=== PATIENT | male | born 1995 | race Two or more races ===

== ENCOUNTER 2017-08-07 19:35 | Emergency (ER) | payer MEDICAID, OTHER ==
[2017-08-07] MEDS ORDERED: NS 1,000 ML IV ONE (19:54)
--- NOTE | 2017-08-07 19:54 | EDPHY ---
H & P Time Seen by Provider: 08/07/17 19:52 HPI/ROS: Chief complaint. Syncope HPI. 22-year-old male here by EMS had hunger pain earlier today and had not yet eaten. Pain was in the upper abdomen. He then got lightheaded and passed out. He awoke on the floor. He does not have any injuries. He has a history of vasovagal syncope and has had this happen before. He feels a little bit foggy. No chest discomfort or trouble breathing. Now no longer abdominal pain. No vomiting or diarrhea. No recent fever or illness ROS Constitutional. no fever/chills, no weakness Eyes. no problems with vision ENT. no sore throat, no nasal drainage Cardiovascular. no chest pain Respiratory. no shortness of breath, no cough Abdominal. no abdominal pain, no nausea/vomiting, no diarrhea . no problems urinating MS. no calf pain/swelling, no neck/back pain, no joint pain Skin. no rash Lymph. no swollen glands Neuro. Syncope Past Medical/Surgical History: Vasovagal syncope Social History: Single, nonsmoker, no alcohol Smoking Status: Never smoked Physical Exam: General Appearance: Alert pleasant well-developed male mild distress vital signs are stable Eyes: Pupils equal and round no pallor or injection. ENT, Mouth: Mucous membranes are moist. Respiratory: There are no retractions, lungs are clear to auscultation. Cardiovascular: Regular rate and rhythm. Gastrointestinal: Abdomen is soft and nontender, no masses, bowel sounds normal. Neurological: Awake and alert, sensory and motor exams grossly normal. Skin: Warm and dry, no rashes. Musculoskeletal: Neck is supple nontender. Extremities symmetrical, full range of motion. Psychiatric: Patient is oriented X 3, there is no agitation. Constitutional: Initial Vital Signs Heart Rate 75 08/07/17 19:38 Respiratory Rate 18 08/07/17 19:38 Blood Pressure 119/76 08/07/17 19:38 O2 Sat (%) 98 08/07/17 19:38 O2 Delivery Mode Room Air O2 (L/minute) 37.0 Allergies/Adverse Reactions: No Known Allergies Allergy (Unverified 05/26/10 21:40) Home Medications: Medication Instructions Recorded NK [No Known Home Meds] 08/07/17 Medical Decision Making - Diagnostics EKG Interpretation: EKG interpreted by me shows normal sinus rhythm with normal interval and axis. QRS is normal there is no significant ST elevation or depression. No arrhythmia. The rate is 67 Procedures: IV normal saline, monitor ED Course/Re-evaluation: Re-evaluation 10:15 p.m. patient is stable feels well with no symptoms. The patient and I discussed EKG and laboratory evaluation. We discussed treatment plan including criteria for return importance of follow-up and further evaluation. He expresses understanding and agreement Differential Diagnosis: This is likely vasovagal syncope. He has had this before. I considered electrolyte abnormalities, acute coronary syndrome, arrhythmia. - Data Points Laboratory Results: Laboratory Results 08/07/17 20:10 08/07/17 20:10 08/07/17 08/07/17 08/07/17 20:10 20:10 20:10 WBC 5.97 10^3/uL 10^3/uL (3.80-9.50) RBC 4.86 10^6/uL 10^6/uL (4.40-6.38) Hgb 15.5 g/dL g/dL (13.7-17.5) Hct 43.5 % % (40.0-51.0) MCV 89.5 fL fL (81.5-99.8) MCH 31.9 pg pg (27.9-34.1) MCHC 35.6 g/dL g/dL (32.4-36.7) RDW 11.8 % % (11.5-15.2) Plt Count 184 10^3/uL 10^3/uL (150-400) MPV 10.1 fL fL (8.7-11.7) Neut % (Auto) 56.1 % % (39.3-74.2) Lymph % (Auto) 30.0 % % (15.0-45.0) [place] % (Auto) 11.1 % % (4.5-13.0) Eos % (Auto) 2.2 % % (0.6-7.6) Baso % (Auto) 0.3 % % (0.3-1.7) Nucleat RBC Rel Count 0.0 % % (0.0-0.2) Absolute Neuts (auto) 3.35 10^3/uL 10^3/uL (1.70-6.50) Absolute Lymphs (auto) 1.79 10^3/uL 10^3/uL (1.00-3.00) Absolute Monos (auto) 0.66 10^3/uL 10^3/uL (0.30-0.80) Absolute Eos (auto) 0.13 10^3/uL 10^3/uL (0.03-0.40) Absolute Basos (auto) 0.02 10^3/uL 10^3/uL (0.02-0.10) Absolute Nucleated RBC 0.00 10^3/uL 10^3/uL (0-0.01) Immature Gran % 0.3 % % (0.0-1.1) Immature Gran # 0.02 10^3/uL 10^3/uL (0.00-0.10) D-Dimer < 0.27 ug/mLFEU ug/mLFEU (0.00-0.50) Sodium 138 mEq/L mEq/L (134-144) Potassium 3.6 mEq/L mEq/L (3.5-5.2) Chloride 101 mEq/L mEq/L (97-110) Carbon Dioxide 27 mEq/l mEq/l (22-31) Anion Gap 10 mEq/L mEq/L (8-16) BUN 20 mg/dL mg/dL (7-23) Creatinine 1.1 mg/dL mg/dL (0.7-1.3) Estimated GFR > 60 Glucose 95 mg/dL mg/dL (70-100) Calcium 9.8 mg/dL mg/dL (8.5-10.4) Troponin I < 0.012 ng/mL ng/mL (0.000-0.034) Medications Given: Discontinued Medications Sodium Chloride (Ns) 1,000 mls @ 0 mls/hr IV EDNOW ONE; Wide Open PRN Reason: Protocol Stop: 08/07/17 19:55 Last Admin: 08/07/17 20:11 Dose: 1,000 mls Departure - Departure Disposition: Home, Routine, Self-Care Clinical Impression: Syncope Qualifiers: Syncope type: vasovagal syncope Qualified Code(s): R55 - Syncope and collapse Condition: Good Instructions: Syncope (ED) Additional Instructions: Easy activity the next 1-2 days. Regular eating and drinking fluids. Get good sleep. Return for chest discomfort, trouble breathing, another passing out episode. Re-evaluation by Dr. Bernal in 2-3 days Referrals: Farrah Bernal PA [Primary Care Provider] - 2-3 days, call for appt.
--- NOTE | 2017-08-07 20:01 | CPEKG ---
Heart Rate: 67 RR Interval: 896 P-R Interval: 156 QRSD Interval: 86 QT Interval: 384 QTC Interval: 406 P [place]: 35 QRS [place]: 94 T [place]: 61 EKG Severity - OTHERWISE NORMAL ECG - EKG Impression: SINUS RHYTHM EKG Impression: BORDERLINE RIGHT AXIS DEVIATION Electronically Signed By: Silverio Sawyer 07-Aug-2017 23:18:28
[2017-08-07 20:14] VITALS: RESP 16
[2017-08-07 20:17] LABS: % IMMATURE GRANULYOCYTES 0.3 % (0.0-1.1); ABSOLUTE IMMATURE GRANULOCYTES 0.02 10^3/uL (0.00-0.10); ADD DIFF? NO; ADD MORPH? NO; ADD SCAN? NO; ATYPICAL LYMPHOCYTE FLAG 20 (0-99); FRAGMENT RBC FLAG 0 (0-99); HEMATOCRIT 43.5 % (40.0-51.0); HEMOGLOBIN 15.5 g/dL (13.7-17.5); LEFT SHIFT FLG 0 (0-99); LIPEMIA HEMOLYSIS FLAG 90 (0-99); MEAN CELL HEMOGLOBIN 31.9 pg (27.9-34.1); MEAN CELL HEMOGLOBIN CONCENTR. 35.6 g/dL (32.4-36.7); MEAN CELL VOLUME 89.5 fL (81.5-99.8); MEAN PLATELET VOLUME 10.1 fL (8.7-11.7); PLATELET CLUMPS FLAG 0 (0-99); PLATELET COUNT 184 10^3/uL (150-400); RED BLOOD CELL COUNT 4.86 10^6/uL (4.40-6.38); RED CELL DISTRIBUTION WIDTH 11.8 % (11.5-15.2)
[2017-08-07 20:36] LABS: ANION GAP 10 mEq/L (8-16); CALCIUM 9.8 mg/dL (8.5-10.4); CARBON DIOXIDE 27 mEq/l (22-31); CHLORIDE 101 mEq/L (97-110); CREATININE 1.1 mg/dL (0.7-1.3); GLOMERULAR FILTRATION RATE > 60; GLUCOSE 95 mg/dL (70-100); POTASSIUM 3.6 mEq/L (3.5-5.2); SODIUM 138 mEq/L (134-144)
[2017-08-07 20:48] LABS: TROPONIN I < 0.012 ng/mL (0.000-0.034)
[2017-08-07 22:38] VITALS: BP 112/71; PULSE 75; O2SAT 94
== END 2017-08-07 22:37 | disposition home or self-care (01) ==
DX: R55 Syncope and collapse (principal); E86.9 Volume depletion, unspecified

== ENCOUNTER 2017-10-03 10:29 | Inpatient (IN) | payer OTHER ==
[2017-10-03] MEDS ORDERED: ONDANSETRON DISINTEGRATING 4 MG TAB PO ONE (10:42)
--- NOTE | 2017-10-03 10:51 | EDPHY ---
H & P Stated Complaint: n/v constipation/abd discomfort Time Seen by Provider: 10/03/17 10:47 - Personal History Current Tetanus/Diphtheria Vaccine: Yes - Medical/Surgical History Hx Asthma: No Hx Chronic Respiratory Disease: No Hx Diabetes: No Hx Cardiac Disease: No Hx Renal Disease: No Hx Cirrhosis: No Hx Alcoholism: No Hx HIV/AIDS: No Hx Splenectomy or Spleen Trauma: No Other PMH: LIP/ JAW. vasovagal rx. PACs - Social History Smoking Status: Never smoked Constitutional: Initial Vital Signs Temperature (C) 36.4 C 10/03/17 10:32 Heart Rate 73 10/03/17 10:32 Respiratory Rate 18 10/03/17 10:32 Blood Pressure 111/81 H 10/03/17 10:32 O2 Sat (%) 96 10/03/17 10:32 O2 Delivery Mode Room Air Allergies/Adverse Reactions: No Known Allergies Allergy (Verified 10/03/17 10:30) Home Medications: Medication Instructions Recorded Ibuprofen [Motrin (*)] 200 mg PO Q4-6PRN PRN 10/03/17 Medical Decision Making - Diagnostics Imaging Results: Imaging Impressions Abdomen CT 10/03/17 10:53 Impression: Moderate mechanical small bowel obstruction into the pelvis, uncertain etiology. Trace peritoneal ascites. Results called to Dr. Doe at 12:00 PM. Imaging: Discussed imaging studies w/ call center agent Radiologist, I viewed and interpreted images myself ED Course/Re-evaluation: CHIEF COMPLAINT: Abdominal pain, vomiting, nausea HISTORY OF PRESENT ILLNESS: The patient is a 22 y/o male complaining of lower abdominal pain, nausea, and vomiting for one day. His pain was initially in the upper and middle abdomen which eventually migrated to his lower abdomen. After the pain began he started vomiting. He has had a decreased appetite due to the pain. Took Advil for pain. Denies history of abdominal surgery. No diarrhea, urinary complaints, chest pain , fever, paresthesias or other pertinent symptoms. REVIEW OF SYSTEMS: A 10 point review of systems was performed and is negative with the exception of the elements mentioned in the history of present illness. PHYSICAL EXAM: HR, BP, O2 Sat, RR. Temp noted General Appearance: Alert, well hydrated, appropriate, and non-toxic appearing. Head: Atraumatic without scalp tenderness or obvious injury Eyes: Pupils equal, round, reactive to light and accommodation, EOMI, no trauma , no injection. Ears: Clear bilaterally, no perforation, normal landmarks Nose: Atraumatic, no rhinorrhea, clear. Throat: Mucus membranes moist. Neck: Supple, nontender, no lymphadenopathy. Respiratory: No retractions, no distress, no wheezes, and no accessory muscle use. Lungs are clear to auscultation bilaterally. Cardiovascular: Regular rate and rhythm, no murmurs, rubs, or gallops. Good capillary refill all extremities. Gastrointestinal: Periumbilical lower abdominal tenderness. Abdomen is soft, non-distended, no masses, no rebound, no guarding, no peritoneal signs. Musculoskeletal: Normal active ROM of all extremities, atraumatic. Neurological: Alert, appropriate, and interactive. Non-focal neuro Skin: No rashes, good turgor, no nodules on palpation. Past medical history: Denies Past surgical history: Denies Family history: Noncontributory Social history: Parents at bedside, lives in [place], student at [employer], [place] DIAGNOSTICS/PROCEDURES/CRITICAL CARE TIME: Abdominopelvic CT: Mechanical small bowel obstruction of unknown etiology. His appendix is normal. DIFFERENTIAL DIAGNOSIS: The differential diagnosis for the patient's abdominal pain included but was not limited to small bowel obstruction, appendicitis, cholecystitis, hernias, testicular torsion, gastritis, and urinary tract infection. MEDICAL DECISION MAKING: The patient is a 22 y/o male presenting with vomiting and abdominal pain for 1 day. On exam he has periumbilical lower abdominal tenderness. Labs, CBC, BMP, and abdominopelvic CT ordered. 4mg IV Zofran, 1mg IV Dilaudid, and 1L IV NS administered. 1200: Spoke with Dr. Hallman, radiologist, the AP CT reveals a mechanical small bowel obstruction of unknown etiology. Plan on consulting with general surgery. 1203: Reassessed patient and discussed imaging findings and plan for admission. 1209: Consulted with Dr. Chaidez, general surgeon, he agrees to consult and admit this patient. - Data Points Laboratory Results: Laboratory Results 10/03/17 10:55 10/03/17 10:55 10/03/17 10/03/17 10/03/17 10:55 10:55 10:55 WBC 5.09 10^3/uL 10^3/uL (3.80-9.50) RBC 5.54 10^6/uL 10^6/uL (4.40-6.38) Hgb 17.5 g/dL g/dL (13.7-17.5) POC Hgb Hct 49.0 % % (40.0-51.0) POC Hct MCV 88.4 fL fL (81.5-99.8) MCH 31.6 pg pg (27.9-34.1) MCHC 35.7 g/dL g/dL (32.4-36.7) RDW 11.9 % % (11.5-15.2) Plt Count 162 10^3/uL 10^3/uL (150-400) MPV 10.3 fL fL (8.7-11.7) Neut % (Auto) 66.2 % % (39.3-74.2) Lymph % (Auto) 21.8 % % (15.0-45.0) [place] % (Auto) 10.4 % % (4.5-13.0) Eos % (Auto) 1.2 % % (0.6-7.6) Baso % (Auto) 0.2 % L % (0.3-1.7) Nucleat RBC Rel Count 0.0 % % (0.0-0.2) Absolute Neuts (auto) 3.37 10^3/uL 10^3/uL (1.70-6.50) Absolute Lymphs (auto) 1.11 10^3/uL 10^3/uL (1.00-3.00) Absolute Monos (auto) 0.53 10^3/uL 10^3/uL (0.30-0.80) Absolute Eos (auto) 0.06 10^3/uL 10^3/uL (0.03-0.40) Absolute Basos (auto) 0.01 10^3/uL L 10^3/uL (0.02-0.10) Absolute Nucleated RBC 0.00 10^3/uL 10^3/uL (0-0.01) Immature Gran % 0.2 % % (0.0-1.1) Immature Gran # 0.01 10^3/uL 10^3/uL (0.00-0.10) PT 14.0 SEC SEC (12.0-15.0) INR 1.06 (0.83-1.16) APTT 26.8 SEC SEC (23.0-38.0) POC Sodium Sodium 144 mEq/L mEq/L (134-144) POC Potassium Potassium 3.7 mEq/L mEq/L (3.5-5.2) POC Chloride Chloride 103 mEq/L mEq/L (97-110) Carbon Dioxide 26 mEq/l mEq/l (22-31) Anion Gap 15 mEq/L mEq/L (8-16) POC BUN BUN 18 mg/dL mg/dL (7-23) Creatinine 1.1 mg/dL mg/dL (0.7-1.3) POC Creatinine Estimated GFR > 60 Glucose 87 mg/dL mg/dL (70-100) POC Glucose Calcium 9.9 mg/dL mg/dL (8.5-10.4) Total Bilirubin 0.9 mg/dL mg/dL (0.1-1.4) Conjugated Bilirubin 0.2 mg/dL mg/dL (0.0-0.5) Unconjugated Bilirubin 0.7 mg/dL mg/dL (0.0-1.1) AST 25 IU/L IU/L (17-59) ALT 34 IU/L IU/L (21-72) Alkaline Phosphatase 51 IU/L IU/L (38-126) Total Protein 7.4 g/dL g/dL (6.3-8.2) Albumin 4.4 g/dL g/dL (3.5-5.0) Lipase 49 IU/L IU/L (23-300) 10/03/17 10:53 WBC RBC Hgb POC Hgb 17.3 gm/dL gm/dL (13.7-17.5) Hct POC Hct 51 % % (40-51) MCV MCH MCHC RDW Plt Count MPV Neut % (Auto) Lymph % (Auto) [place] % (Auto) Eos % (Auto) Baso % (Auto) Nucleat RBC Rel Count Absolute Neuts (auto) Absolute Lymphs (auto) Absolute Monos (auto) Absolute Eos (auto) Absolute Basos (auto) Absolute Nucleated RBC Immature Gran % Immature Gran # PT INR APTT POC Sodium 141 mEq/L mEq/L (134-144) Sodium POC Potassium 3.5 mEq/L mEq/L (3.3-5.0) Potassium POC Chloride 102 mEq/L mEq/L (97-110) Chloride Carbon Dioxide Anion Gap POC BUN 19 mg/dL mg/dL (7-23) BUN Creatinine POC Creatinine 1.1 mg/dL mg/dL (0.7-1.3) Estimated GFR Glucose POC Glucose 92 mg/dL mg/dL (70-100) Calcium Total Bilirubin Conjugated Bilirubin Unconjugated Bilirubin AST ALT Alkaline Phosphatase Total Protein Albumin Lipase Medications Given: Acetaminophen (Tylenol) 1,000 mg PO Q8H SERENA Stop: 04/01/18 12:59 Last Admin: 10/03/17 14:15 Dose: 1,000 mg Discontinued Medications Hydromorphone HCl (Dilaudid) 1 mg IVP EDNOW ONE Stop: 10/03/17 10:53 Last Admin: 10/03/17 11:07 Dose: 0.5 mg Sodium Chloride (Ns) 1,000 mls @ 0 mls/hr IV EDNOW ONE; Wide Open PRN Reason: Protocol Stop: 10/03/17 10:53 Last Admin: 10/03/17 11:06 Dose: 1,000 mls Ondansetron HCl (Zofran Odt) 4 mg PO EDNOW ONE Stop: 10/03/17 10:43 Last Admin: 10/03/17 10:44 Dose: 4 mg Ondansetron HCl (Zofran) 4 mg IVP EDNOW ONE Stop: 10/03/17 10:53 Last Admin: 10/03/17 11:06 Dose: 4 mg Point of Care Test Results: 10/03/17 10:53 POC Sodium 141 POC Potassium 3.5 POC Chloride 102 POC BUN 19 POC Creatinine 1.1 POC Glucose 92 Departure - Departure Disposition: [facility] Clinical Impression: Small bowel obstruction Condition: Fair Report Scribed for: Cj Doe Report Scribed by: Maci Grier Date of Report: 10/03/17 Time of Report: 10:52
[2017-10-03] MEDS ORDERED: ONDANSETRON 4 MG/2 ML VIAL IVP ONE (10:52)
[2017-10-03] MEDS ORDERED: NS 1,000 ML IV ONE (10:52)
[2017-10-03] MEDS ORDERED: HYDROmorphONE/DILAUDID 1 MG/ML INJ IVP ONE (10:52)
[2017-10-03 11:20] LABS: % IMMATURE GRANULYOCYTES 0.2 % (0.0-1.1); ABSOLUTE IMMATURE GRANULOCYTES 0.01 10^3/uL (0.00-0.10); ADD DIFF? NO; ADD MORPH? NO; ADD SCAN? NO; ATYPICAL LYMPHOCYTE FLAG 20 (0-99); FRAGMENT RBC FLAG 0 (0-99); HEMOGLOBIN 17.5 g/dL (13.7-17.5); LEFT SHIFT FLG 0 (0-99); LIPEMIA HEMOLYSIS FLAG 90 (0-99); MEAN CELL HEMOGLOBIN 31.6 pg (27.9-34.1); MEAN CELL HEMOGLOBIN CONCENTR. 35.7 g/dL (32.4-36.7); MEAN CELL VOLUME 88.4 fL (81.5-99.8); MEAN PLATELET VOLUME 10.3 fL (8.7-11.7); PLATELET CLUMPS FLAG 10 (0-99); PLATELET COUNT 162 10^3/uL (150-400); RED BLOOD CELL COUNT 5.54 10^6/uL (4.40-6.38); RED CELL DISTRIBUTION WIDTH 11.9 % (11.5-15.2)
[2017-10-03] MEDS ORDERED: IOPAMIDOL (ISOVUE-300) 100 ML BTL ONE (11:21)
[2017-10-03 11:35] LABS: ALANINE AMINOTRANSFERASE 34 IU/L (21-72); ALBUMIN 4.4 g/dL (3.5-5.0); ALKALINE PHOSPHATASE 51 IU/L (38-126); ANION GAP 15 mEq/L (8-16); ASPARTATE AMINOTRANSFERASE 25 IU/L (17-59); BILIRUBIN,TOTAL 0.9 mg/dL (0.1-1.4); BILIRUBIN-CONJUGATED 0.2 mg/dL (0.0-0.5); BILIRUBIN-UNCONJUGATED 0.7 mg/dL (0.0-1.1); CALCIUM 9.9 mg/dL (8.5-10.4); CARBON DIOXIDE 26 mEq/l (22-31); CHLORIDE 103 mEq/L (97-110); CREATININE 1.1 mg/dL (0.7-1.3); GLOMERULAR FILTRATION RATE > 60; GLUCOSE 87 mg/dL (70-100); POTASSIUM 3.7 mEq/L (3.5-5.2); SODIUM 144 mEq/L (134-144); TOTAL PROTEIN 7.4 g/dL (6.3-8.2)
[2017-10-03 11:38] LABS: INR 1.06 (0.83-1.16)
[2017-10-03 11:39] LABS: APTT 26.8 SEC (23.0-38.0)
[2017-10-03] MEDS ORDERED: ONDANSETRON 4 MG/2 ML VIAL IVP PRN (12:49)
[2017-10-03] MEDS ORDERED: KETOROLAC 30 MG/1 ML SDV IVP PRN (12:58)
[2017-10-03] MEDS ORDERED: ACETAMINOPHEN 325 MG TAB PO SCH (13:00)
[2017-10-03] MEDS: ACETAMINOPHEN 500 MG TAB PO SCH ×2 (14:15→20:30)
[2017-10-03] MEDS: POTASSIUM Cl (KCl) 10 MEQ in D5W 1/2 NS 1,000 ML IV SCH ×2 (14:17→23:59)
--- NOTE | 2017-10-03 20:25 | GHP ---
[f rep st] PREOP HISTORY AND PHYSICAL DATE OF ADMISSION: 10/03/2017 ADMITTING DIAGNOSES: 1. Abdominal pain. 2. Mesenteric adenitis. 3. Nausea and vomiting. HISTORY: This patient is a 22-year-old male who had breakfast at 11:00 in the morning yesterday cons isting of 2 sausages, an egg and cheese. Immediately after eating, he had epigastric fullness, which then became a squeezing epigastric pain. At approximately noon, he vomited and then vomited 5 more times over the course of the afternoon. Every time he tried to eat, he vomited. He slept fitfully a nd said he was "burning up" during his sleep. He is complaining of gastric ill ease for the past month. Most foods tend upset him. He moves his b owels 1-2 times a day. He complains of a distended abdomen about every week and half to 2 weeks. He has had a 5-pound weight loss over the last month. He came to the ER for evaluation. He denies rec ent upper respiratory tract infection or diarrhea. There is no history of inflammatory bowel disease . Aside from this month long episode, there have been no prior similar symptoms. He has had no abdomin al surgery. He has had no travel or antibiotic use. SOCIAL HISTORY: He does not smoke. He does not chew. He does drink 1-2 drinks per week. ALLERGIES: He has no known drug allergies. MEDICATIONS: He is not taking any medications. PAST SURGICAL HISTORY: He has had an underbite surgery. There is no history of rheumatic fever, tuberculosis, hepatitis, or transfusions. REVIEW OF SYSTEMS: He wears lenses for visual correction. His episode 1 month ago on August 07 occ urred as he came back from eating. He passed out and did hit his head and was evaluated at the ER at that point for this epigastric discomfort that caused the whole process. Review of systems is other arora quite negative. PHYSICAL EXAMINATION: GENERAL: He is awake and alert. He is afebrile. HEENT: His skull is normoc ephalic and atraumatic. He does not look toxic. His pupils are equal, round, reactive to light and accommodation. External extraocular movements are intact. His ears are clear bilaterally. His nose is atraumatic. There is no rhinorrhea. Neck is nontender. There is no cervical, supraclavicular, axillary, or inguinal lymphadenopathy. LUNGS: Clear to auscultation. CARDIAC: Shows S1, S2 to be normal with normal split of S2 without murmurs, rubs, or gallops. EXTREMITIES: Unremarkable. There are no focal lateralizing neurologic findings. Abdomen: Shows bowel sounds to present. He is not tender to cough. Psoas and obturator signs are negative. To palpation, his abdomen on a scale of 1- 10 is 1 left upper quadrant, 1 left mid abdomen, 3 in the left lower quadrant, 1 in the epigastrium, 8 in the periumbilical area, 2 in the suprapubic area, 1 in the right upper quadrant, 1 in the right mid abdomen, 1 the right lower quadrant. His white count is 5100 with 66% neutrophils. His hematocrit is 49. His CT is suggestive of mechani riky small bowel obstruction of unknown etiology. His appendix is normal. Laboratories are otherwise unhelpful. He will be admitted to the hospital for bowel rest and observation. If this resolves, a small bowel follow-through will be considered. IMPRESSION: Usually, a small-bowel obstruction does occur with a hernia, which he does not have, or adhesions from prior abdominal surgeries, which he does not have. I wonder if this could be a band c ausing adhesion due to a residual from a Meckel's involution. Certainly, if he fails to improve, an evaluation will be considered. At this point, I feel there is a very good chance this will resolve without surgical intervention. /[id number]/MODL
[2017-10-04] MEDS: ACETAMINOPHEN 500 MG TAB PO SCH ×2 (04:32→15:29)
[2017-10-04 05:25] LABS: % IMMATURE GRANULYOCYTES 0.4 % (0.0-1.1); ABSOLUTE IMMATURE GRANULOCYTES 0.01 10^3/uL (0.00-0.10); ADD DIFF? NO; ADD MORPH? NO; ADD SCAN? NO; ATYPICAL LYMPHOCYTE FLAG 30 (0-99); FRAGMENT RBC FLAG 0 (0-99); HEMATOCRIT 42.7 % (40.0-51.0); HEMOGLOBIN 14.6 g/dL (13.7-17.5); LEFT SHIFT FLG 0 (0-99); LIPEMIA HEMOLYSIS FLAG 90 (0-99); MEAN CELL HEMOGLOBIN CONCENTR. 34.2 g/dL (32.4-36.7); MEAN CELL VOLUME 90.7 fL (81.5-99.8); MEAN PLATELET VOLUME 10.9 fL (8.7-11.7); PLATELET CLUMPS FLAG 10 (0-99); PLATELET COUNT 124 10^3/uL (150-400); RED BLOOD CELL COUNT 4.71 10^6/uL (4.40-6.38); RED CELL DISTRIBUTION WIDTH 11.9 % (11.5-15.2)
[2017-10-04 05:33] LABS: ANION GAP 9 mEq/L (8-16); CALCIUM 8.8 mg/dL (8.5-10.4); CARBON DIOXIDE 26 mEq/l (22-31); CHLORIDE 107 mEq/L (97-110); GLOMERULAR FILTRATION RATE > 60; GLUCOSE 88 mg/dL (70-100); POTASSIUM 4.3 mEq/L (3.5-5.2); SODIUM 142 mEq/L (134-144)
[2017-10-04] MEDS: POTASSIUM Cl (KCl) 10 MEQ in D5W 1/2 NS 1,000 ML IV SCH (08:37)
[2017-10-04 11:26] VITALS: BP 102/70; PULSE 56; RESP 19; TEMP 98.1; O2SAT 99
--- NOTE | 2017-10-04 13:10 | SOAPPROG ---
SOAP Progress Note Assessment/Plan: PAD#1 10/04/2017 Assessment: Moved bowels last PM. Feels much better today. Stool positive for shigella and Norovirus Plan: Hospitalist service consulted. Subjective: I feel much better! Objective: Vital Signs Temp Pulse Resp BP Pulse Ox 36.7 C 56 L 19 102/70 99 10/04/17 11:23 10/04/17 11:23 10/04/17 11:23 10/04/17 11:23 10/04/17 11:23 PT 14.0 SEC (12.0-15.0) 10/03/17 10:55 INR 1.06 (0.83-1.16) 10/03/17 10:55 - Time Spent With Patient Time Spent With Patient: 15 ICD10 Worksheet Patient Problems: Problems Problem Status Onset Small bowel obstruction Acute
--- NOTE | 2017-10-04 14:03 | GCON ---
[f rep st] CONSULTATION MEDICINE CONSULTATION DATE OF CONSULTATION: 10/04/2017 REASON FOR CONSULTATION: Patient was admitted by the Surgery Service for possible small-bowel obstru ction. Gastrointestinal pathogen panel revealed Norovirus and E. coli Shiga like toxin positive resu lt and Medicine was consulted for further management. 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 A C T scan was performed which revealed fluid-filled distention of small-bowel loops throughout the abdom en, possibly compatible with this mechanical small-bowel obstruction. The patient was admitted to [facility] for further management. PAST MEDICAL HISTORY: Premature atrial contractions. MEDICATIONS: Please see [facility] for completed outpatient medication list. ALLERGIES: He has no known drug allergies. 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 He denies tobacco or alcohol use. He lives independently with roommates. FAMILY HISTORY: Reviewed and noncontributory. REVIEW OF SYSTEMS: A 10-point review of systems was performed and is negative except as per HPI. OBJECTIVE: VITAL SIGNS: Temperature 36.7, blood pressure 102/70, heart rate 56, respiratory rate 19 . He is 99% on room air. GENERAL: The patient is awake, alert and oriented, in no acute distress CHANDLER NT: Head is atraumatic, normocephalic. Pupils equal, round, react to light. Extraocular muscles int act. Oropharynx clear. Mucous membranes are moist. NECK: Supple. There is no JVD. HEART: Regula r rate and rhythm without murmur. LUNGS: Clear to auscultation bilaterally. ABDOMEN: Soft, nondis tended, nontender. Normoactive bowel sounds are present. EXTREMITIES: Without cyanosis, clubbing, or edema. He has 2+ capillary refill. NEUROLOGIC: Grossly nonfocal. LABORATORY DATA: Last CBC reveals a white blood cell count of 2.85, platelets of 124 with 26% neutro phils and a lymphocytic shift with 50% lymphocytes. Basic metabolic panel is completely normal with normal renal function. Creatinine is 1.0, normal electrolytes. IMAGING DATA: Abdomen CT from the Emergency Department, 10/03, with results described above. Abdomen x-ray, 10/04/2017, is personally reviewed and interpreted, shows resolving small bowel obstru ction. ASSESSMENT AND PLAN: Mr. Fela Gutierrez is a 22-year-old male who is otherwise healthy and presents to the Emergency Department with abdominal pain, nausea, vomiting, and then diarrhea with stool studi es positive for Norovirus and Shigatoxin producing E. coli. Gastroenteritis secondary to Norovirus. It is unclear if he has a secondary infectious process from the E. coli or if he is colonized with this, but undoubtedly Norovirus is causing his acute illness a nd likely explains his abnormal CT findings. His condition is clinically improved today. He is pain free. He has no further nausea, vomiting, or diarrhea. I think it is reasonable to give him a p.o. challenge. Will start with clear liquids and advance his diet as tolerated. If he continues to do well. He may be a candidate for discharge later this afternoon. CODE STATUS: Patient is a full code. DISPOSITION: Observation. /[id number]/MODL
--- NOTE | 2017-10-04 15:13 | ASDISCHSUM ---
Discharge Information Plan Status:Home with No Needs Medically Cleared to Leave:10/03/2017 Discharge Date:10/04/2017 02:33 PM CM D/C Disposition:Home, Routine, Self-Care ADT D/C Disposition:Home, Routine, Self-Care Projected Discharge Date:10/04/2017 02:33 PM Transportation at D/C:Friend Discharge Delay Reason: Follow-Up Date:10/04/2017 02:33 PM Discharge Slot:2 - 12:01 pm - 18:00 pm Final Diagnosis:Abdominal pain, mesenteric adenitis, nausea, vomiting Placement Information Patient Contact Information Contact Name:CARROL Relationship:Father Address:[address] Work Phone: Otilia:ZULMA Dawkins Phone: [facility]/Zip Code:[place] [address] Email: Financial Information Financial Class:HMO and PPO Plans Primary Plan Desc:[employer] Primary Plan Number:[id number] Secondary Plan Desc: Secondary Plan Number: Assessment Information [facility] CM Progress Note CM Note CM Note Notes: Reviewed chart regarding discharge plan, pt's progress. Pt admitted w/ abdominal pain, nausea, vomiting. Per Dr. Chaidez, pt to discharge home today w/ no identified needs. Pt to follow up as directed. No IM signed, not applicable. CM avail for any further issues or concerns. Date Signed: 10/04/2017 03:11 PM Electronically Signed By:Sommer Machado RN Intervention Information
--- NOTE | 2017-10-04 16:38 | GDS ---
[f rep st] DISCHARGE SUMMARY DISCHARGE DIAGNOSES: 1. Acute gastroenteritis secondary to norovirus. 2. Volume depletion, resolved. HISTORY: For details, please see his history and physical dated October 03, [address] Dajuan schwarz. In brief, Mr. Fela Gutierrez is a 22-year-old male with no significant past medical history, who presented to the emergency department after developing abdominal pain, nausea and vomiting. He was admitted to the Surgery service due to concern for a possible small-bowel obstruction, and when his G I pathogen panel resulted with norovirus and Shigatoxin-producing E coli, a Medicine consult was jewels [facility]. HOSPITAL COURSE: Patient was treated with IV fluids. His symptoms resolved. He has had no further nausea, vomiting, or diarrhea. He is afebrile. He is able to tolerate a full diet with no recurrenc e of his pain. I discussed the case Dr. Chaidez, who does not feel this is a surgical issue. I suspe ct the norovirus is a causative agent in his acute illness. It is unclear if he has a concomitant E coli infection or if this is a colonization. Regardless, there is no specific treatment, other than supportive care. He is noted to have leukopenia with neutropenia this morning. This is likely viral suppression. However, I recommend he has a followup CBC in 1 week to ensure resolution. DISPOSITION: Patient is discharged home in stable condition. FOLLOWUP: Patient is to follow up with the [facility]. His primary care provi asha is Farrah Bernal. DISCHARGE MEDICATIONS: Please see [facility] for completed outpatient medication list. There are no n ew medications on discharge. /[id number]/MODL
== END 2017-10-04 14:33 | disposition home or self-care (01) | DRG 392 ==
LOC: F3E 13:07 → OBSVTOIN 10-04 10:52
PROVIDERS: ADMIT Surgery; ATTEND Hospitalist
DX: A08.11 Acute gastroenteropathy due to Norwalk agent (principal); E86.9 Volume depletion, unspecified
CPT/HCPCS: 82947-QW; 96374; G0378; J1170; J1885; J2405; Q9967